=== PATIENT | male | born 1995 | race Caucasian/White ===

== ENCOUNTER 2016-06-14 22:01 | Emergency (ER) | payer OTHER ==
[2016-06-14 22:38] VITALS: BP 122/84; PULSE 89; RESP 16; TEMP 99; O2SAT 95
--- NOTE | 2016-06-14 22:45 | UCPHY ---
H & P Patient Type: New HPI/ROS: CHIEF COMPLAINT: Scrotal bumps, penile lesion. HISTORY OF PRESENT ILLNESS: The patient is a 20-year-old male who presents with 6 bumps on the lower aspect of his penis both right and left as well as on the left gege that he noticed 4 days ago. This was the next day after consensual intercourse where he had 1st use condom then did not. He notes there was oral sex involved. The bumps are mildly painful, particularly with the 1 on the gege. He admits a small amount of discharge from this lesion. He denies penile discharge, fever, abdominal pain, or other complaints. He has not had any fever or penile discharge no prior history of STD. He did have sex with a new partner on without a condom and involving oral sex. REVIEW OF SYSTEMS: Constitutional: No fever, no chills. Genitourinary: No hematuria or frequency. 10 point ROS otherwise negative Past Medical/Surgical History: Denies. Social History: Does not abuse alcohol or drugs. Smoking Status: Unknown if ever smoked Physical Exam: General: WD, WN, nontoxic. Afebrile Abdomen: No distention, flat. BS present, soft, nontender. No masses. No guarding or rebound. No CVA tenderness. Genitalia: nl hair pattern. Descended bilaterally. Uncircumcised, no discharge. Scrotum without swelling or tenderness. No focal tenderness. There is an area of inflammation with superficial breakdown of the skin at the area of the left gege which is 1 x 2 cm. This is a site that he thinks was checked by his under shorts. On the shaft of the penis there are 3 distinct lesions that are raised, mostly scab like without any clear vesicles as a whitlock. There is no active discharge at this time. Constitutional: Initial Vital Signs Temperature (C) 37.2 C 06/14/16 22:29 Heart Rate 89 06/14/16 22:29 Respiratory Rate 16 06/14/16 22:29 Blood Pressure 122/84 H 06/14/16 22:29 O2 Sat (%) 95 06/14/16 22:29 O2 Delivery Mode Room Air Allergies/Adverse Reactions: No Known Allergies Allergy (Verified 06/14/16 22:28) Home Medications: Medication Instructions Recorded Acyclovir 400 mg PO TID #21 tablet 06/14/16 Medical Decision Making ED Course/Re-evaluation: 20-year-old male presents with scrotal bumps and a lesion at the base of his penis he first noticed 4 days ago. He did have sex with a new partner at that time. They used a condom for part of the time and oral sex was involved. He thought that she had a cold sore in her mouth but is not sure. He does not have associated fever, abdominal pain, or penile discharge. He does note a small amount of discharge from the penile lesion. None of these lesions have a particularly characteristic of HSV. He would like to have this tested. To the lesions on the shaft of the penis or scraped with 5. Scalp home and specimen was sent as well as swab of lesion on the gege. This was sent for HSV PCR I discussed with him the low likelihood that this indeed was a HSV lesion and consider the option of preliminary test with acyclovir pending results. He would like to do that. - Data Points Laboratory Results: 06/14/16 23:09 HSV Source Description Pending HSV I DNA PCR Pending HSV II DNA PCR Pending Medications Given: Discontinued Medications Acyclovir (Acyclovir) 400 mg PO EDNOW ONE Stop: 06/14/16 23:26 Last Admin: 06/14/16 23:34 Dose: Not Given Acyclovir (Zovirax 400 Mg Prepack #4) 1 btl TAKEHOME EDNOW ONE Stop: 06/14/16 23:35 Last Admin: 06/14/16 23:35 Dose: 1 btl Departure - Departure Disposition: Home, Routine, Self-Care Clinical Impression: Penile lesion Condition: Good Instructions: Condom Use (ED) Additional Instructions: Wear boxer briefs does not chief the area. Since she thinks that the long board activity might have abraded the site, refrain from that for the next 2 weeks Call in 3 days time for the specimen results Referrals: Sid Anand MD [Primary Care Provider] - As per Instructions Stef Jeronimo MD [Medical Doctor] - As per Instructions (on-call urologist) Prescriptions: Acyclovir 400 mg PO TID #21 tablet - PQRS PQRS Measurement: Does not apply. Report Scribed for: Sergey Taylor Report Scribed by: Alejandro Dickson Date of Report: 06/14/16 Time of Report: 22:39
[2016-06-14] MEDS ORDERED: ACYCLOVIR 400 MG TAB PO ONE (23:25)
[2016-06-14] MEDS ORDERED: ACYCLOVIR 400 MG PREPACK#4 BTL TAKEHOME ONE ×2 (23:33→23:34)
[2016-06-17 13:37] LABS: SPECIMEN SOURCE LESION ON PENIS
== END 2016-06-14 23:54 | disposition home or self-care (01) ==
LOC: CED 22:01
DX: N50.9 Disorder of male genital organs, unspecified (principal)
CPT/HCPCS: 87529-90; 99203-PO; G0463-PO